=== PATIENT | male | born 1995 | race African-American/Black ===

== ENCOUNTER 2017-12-16 17:30 | Emergency (ER) | payer OTHER ==
[2017-12-16] MEDS ORDERED: HYDROcod/ACETAM 5/325 MG TABLET PO STA (19:24)
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
[2017-12-16] MEDS ORDERED: HYDROcod/ACET 5/325 Prepack 4 PO STA (20:48)
[2017-12-16 20:59] VITALS: BP 108/61
== END 2017-12-16 20:58 | disposition home or self-care (01) ==
LOC: ED 17:30
DX: S16.1XXA Strain of muscle, fascia and tendon at neck level, initial encounter (principal); S39.012A Strain of muscle, fascia and tendon of lower back, initial encounter; V43.52XA Car driver injured in collision with other type car in traffic accident, initial encounter; V47.5XXA Car driver injured in collision with fixed or stationary object in traffic accident, initial encounter; Y92.410 Unspecified street and highway as the place of occurrence of the external cause
CPT/HCPCS: 72040; 72070; 99283; A9270

== ENCOUNTER 2020-11-30 14:02 | Outpatient (CLI) | payer OTHER | END 2020-11-30 23:59 | disposition home or self-care (01) | LOC: LAB.N 14:02 | PROVIDERS: ATTEND Family Medicine | DX: J06.9 Acute upper respiratory infection, unspecified (principal); Z20.822 Contact with and (suspected) exposure to COVID-19 ==